=== PATIENT | female | born 1970 | race Two or more races ===

== ENCOUNTER 2020-02-21 06:16 | Outpatient (REF) | payer OTHER, SELFPAY ==
[2020-02-21 06:54] LABS: MANUAL DIFF FLAG NO
[2020-02-21 07:11] LABS: Estimated Average Glucose 111 mg/dL; Hemoglobin A1c % 5.5 %
[2020-02-21 07:13] LABS: Basophils Absolute Auto 0.1 X10*3/uL (0.0-0.2); Basophils Percent Auto 0.4 % (0-2); Eosinophils Absolute Auto 0.3 X10*3/uL (0.0-0.4); Eosinophils Percent Auto 2.1 % (0-4); Hematocrit 40.7 % (37-47); Hemoglobin 13.2 g/dl (12.0-16.0); Imm Gran Abs Auto 0.05 X10*3/uL (0.00-0.03); Imm Gran Pct Auto 0.4 % (0.0-0.4); Lymphocytes Percent Auto 22.2 % (20-40); Mean Corpuscular HGB Conc 32.4 g/dl (31.0-35.0); Mean Corpuscular Hemoglobin 26.1 pg (27.0-33.0); Mean Corpuscular Volume 80.4 fL (80-98); Mean Platelet Volume 12.2 fL (9.4-12.3); Monocytes Absolute Auto 0.7 X10*3/uL (0.1-1.2); Monocytes Percent Auto 5.1 % (2-11); Neutrophils Absolute Auto 9.5 X10*3/uL (2.0-8.3); Neutrophils Percent Auto 69.8 % (45-73); Platelet Count 291 X10*3/uL (160-400); Red Blood Count 5.06 X10*6/uL (4.20-5.50); Red Cell Distribution Width 15.6 % (11.0-16.0); White Blood Count 13.5 X10*3/uL (4.8-10.8)
[2020-02-21 07:26] LABS: Alanine Aminotransferase 13 U/L (0-31); Alkaline Phosphatase 115 U/L (39-117); Anion Gap 11 (12-20); Aspartate Amino Transferase 13 U/L (5-31); Bilirubin Total 0.4 mg/dL (0.0-1.0); Blood Urea Nitrogen 12 mg/dL (9-16); Calcium 8.4 mg/dL (8.4-10.2); Carbon Dioxide 27 mmol/L (22-29); Chloride 105 mmol/L (96-108); Cholesterol 151 mg/dL; Estimated Glomerular Filt Rate > 60; Glucose Random 100 mg/dL (60-115); HDL Cholesterol 38 mg/dL; LDL Cholesterol Calculated 91 mg/dl; Potassium 4.2 mmol/l (3.3-5.1); Sodium 139 mmol/L (135-145); Total Protein 6.9 g/dL (6.5-8.0); Triglycerides 110 mg/dL
== END 2020-02-21 06:17 | disposition home or self-care (01) ==
LOC: HO.LAB 06:16
PROVIDERS: PCP Internal Medicine; Visit Provider Internal Medicine
DX: E78.00 Pure hypercholesterolemia, unspecified (principal); R73.01 Impaired fasting glucose
CPT/HCPCS: 36415; 80053; 80061; 83036; 84443; 85025

== ENCOUNTER 2020-08-20 07:31 | Outpatient (REF) | payer OTHER, SELFPAY ==
[2020-08-20 08:56] LABS: Alanine Aminotransferase 21 U/L (0-31); Albumin Level 3.9 g/dL (3.5-5.0); Alkaline Phosphatase 113 U/L (39-117); Anion Gap 12 (12-20); Aspartate Amino Transferase 17 U/L (5-31); Bilirubin Total 0.4 mg/dL (0.0-1.0); Blood Urea Nitrogen 18 mg/dL (9-16); Calcium 8.6 mg/dL (8.4-10.2); Carbon Dioxide 24 mmol/L (22-29); Chloride 107 mmol/L (96-108); Cholesterol 187 mg/dL; Estimated Glomerular Filt Rate > 60; Glucose Random 105 mg/dL (60-115); HDL Cholesterol 40 mg/dL; LDL Cholesterol Calculated 123 mg/dl; Potassium 4.4 mmol/L (3.3-5.1); Sodium 139 mmol/L (135-145); Total Protein 6.9 g/dL (6.5-8.0); Triglycerides 124 mg/dL
== END 2020-08-20 07:32 | disposition home or self-care (01) ==
LOC: HO.LAB 07:31
PROVIDERS: PCP Internal Medicine; Visit Provider Internal Medicine
DX: E78.00 Pure hypercholesterolemia, unspecified (principal); I10 Essential (primary) hypertension
CPT/HCPCS: 36415; 80053; 80061

== ENCOUNTER 2021-03-06 12:09 | Outpatient (REF) | payer OTHER, SELFPAY ==
--- NOTE | ~2021-03-06 | MM_ITS ---
EXAMINATION: MM SCREENING DIGITAL BREAST TOMOSYNTHESIS, BILATERAL CLINICAL INFORMATION: Screening. Asymptomatic. The lifetime risk of breast cancer based on the Tyrer-Cuzick Model is 7%. COMPARISON: Mammography: 10/14/2018, 03/04/2017 TECHNIQUE: Digital breast tomosynthesis is performed in both the craniocaudal and mediolateral oblique views along with computer-aided detection (CAD). Synthesized 2D images are generated from the tomosynthesis. Additional right MLO view is provided. FINDINGS: There are scattered areas of fibroglandular density (ACR BI-RADS breast composition Category b). There are no significant masses, abnormal calcifications, or other abnormalities. MM/MM tomosynthesis screening BI IMPRESSION: No mammographic evidence of malignancy. ASSESSMENT: BI-RADS 1: Negative RECOMMENDATION: Routine annual mammography screening. This patient's information was entered into a reminder system with a target due date for their next mammogram.
== END 2021-03-06 12:10 | disposition home or self-care (01) ==
LOC: HO.MAMMO 12:09
PROVIDERS: Visit Provider Internal Medicine
DX: Z12.31 Encounter for screening mammogram for malignant neoplasm of breast (principal)
CPT/HCPCS: 77063; 77067

== ENCOUNTER 2021-09-04 05:57 | Outpatient (REF) | payer OTHER, SELFPAY ==
[2021-09-04 06:09] LABS: MANUAL DIFF FLAG NO
[2021-09-04 07:39] LABS: Basophils Absolute Auto 0.1 X10*3/uL (0.0-0.2); Basophils Percent Auto 0.5 % (0-2); Eosinophils Absolute Auto 0.2 X10*3/uL (0.0-0.4); Eosinophils Percent Auto 1.4 % (0-4); Hematocrit 41.1 % (37.0-47.0); Hemoglobin 13.3 g/dl (12.0-16.0); Imm Gran Abs Auto 0.08 X10*3/uL (0.00-0.03); Imm Gran Pct Auto 0.6 % (0.0-0.4); Lymphocytes Absolute Auto 2.9 X10*3/uL (1.2-4.9); Lymphocytes Percent Auto 22.1 % (20-40); Mean Corpuscular HGB Conc 32.4 g/dl (31.0-35.0); Mean Corpuscular Hemoglobin 26.2 pg (27.0-33.0); Mean Corpuscular Volume 80.9 fL (80.0-98.0); Mean Platelet Volume 12.4 fL (9.4-12.3); Monocytes Absolute Auto 0.7 X10*3/uL (0.1-1.2); Neutrophils Absolute Auto 9.4 x10*3/uL (2.0-8.3); Neutrophils Percent Auto 70.4 % (45-73); Platelet Count 321 X10*3/uL (160-400); Red Blood Count 5.08 X10*6/uL (4.20-5.50); Red Cell Distribution Width 15.7 % (11.0-16.0); White Blood Count 13.3 X10*3/uL (4.8-10.8)
[2021-09-04 08:08] LABS: Alanine Aminotransferase 17 U/L (0-31); Albumin Level 4.1 g/dL (3.5-5.0); Alkaline Phosphatase 125 U/L (39-117); Anion Gap 13 (12-20); Aspartate Amino Transferase 14 U/L (5-31); Bilirubin Total 0.3 mg/dL (0.0-1.0); Blood Urea Nitrogen 15 mg/dL (9-16); Carbon Dioxide 23 mmol/L (22-29); Chloride 107 mmol/L (96-108); Cholesterol 176 mg/dL; Estimated Glomerular Filt Rate > 60; Glucose Random 111 mg/dL (60-115); HDL Cholesterol 40 mg/dL; LDL Cholesterol Calculated 117 mg/dl; Potassium 4.5 mmol/L (3.3-5.1); Sodium 138 mmol/L (135-145); Total Protein 7.4 g/dL (6.5-8.0); Triglycerides 98 mg/dL
== END 2021-09-04 05:58 | disposition home or self-care (01) ==
LOC: HO.LAB 05:57
PROVIDERS: PCP Internal Medicine; Visit Provider Internal Medicine
DX: Z00.00 Encounter for general adult medical examination without abnormal findings (principal); M23.92 Unspecified internal derangement of left knee; E78.00 Pure hypercholesterolemia, unspecified; I10 Essential (primary) hypertension
CPT/HCPCS: 36415; 80053; 80061; 85025

== ENCOUNTER 2021-12-16 08:28 | Outpatient (REF) | payer OTHER, SELFPAY ==
--- NOTE | ~2021-12-16 | XR_ITS ---
EXAMINATION: XR SHOULDER, LEFT CLINICAL INFORMATION: Pain. COMPARISON: None TECHNIQUE: Three views of the left shoulder. FINDINGS: The bones and soft tissues are normal. No fracture. Glenohumeral and acromioclavicular alignment is anatomic with normal joint space. No abnormal soft tissue calcifications. XR/XR shoulder LT min 2V IMPRESSION: Normal left shoulder.
== END 2021-12-16 08:29 | disposition home or self-care (01) ==
LOC: HO.HOSX 08:28
PROVIDERS: Visit Provider Orthopaedic Surgery
DX: M25.512 Pain in left shoulder (principal)
CPT/HCPCS: 73030

== ENCOUNTER 2022-01-30 13:02 | Outpatient (REF) | payer OTHER, SELFPAY ==
--- NOTE | 2022-01-30 08:30 | EMG_ITS ---
Bilateral median and ulnar motor and sensory studies were performed. Bilateral radial sensory studies were performed, and paraspinal muscles were tested with a needle. IMPRESSION: Mild bilateral ulnar neuropathy across cubital tunnel. There was no evidence of median neuropathy. MD RAHAT Torres/YANCY / [id number]
== END 2022-01-30 13:03 | disposition home or self-care (01) ==
LOC: HO.NEURO 13:02
PROVIDERS: PCP Internal Medicine; Visit Provider Internal Medicine
DX: R20.2 Paresthesia of skin (principal)
CPT/HCPCS: 95886; 95911

== ENCOUNTER 2022-03-04 09:57 | Outpatient (REF) | payer OTHER, SELFPAY ==
[2022-03-04 10:16] LABS: MANUAL DIFF FLAG NO
[2022-03-04 10:43] LABS: Basophils Absolute Auto 0.1 X10*3/uL (0.0-0.2); Basophils Percent Auto 0.5 % (0-2); Eosinophils Absolute Auto 0.2 X10*3/uL (0.0-0.4); Eosinophils Percent Auto 1.7 % (0-4); Hemoglobin 12.7 g/dl (12.0-16.0); Imm Gran Abs Auto 0.03 X10*3/uL (0.00-0.03); Imm Gran Pct Auto 0.2 % (0.0-0.4); Lymphocytes Absolute Auto 3.6 X10*3/uL (1.2-4.9); Lymphocytes Percent Auto 26.9 % (20-40); Mean Corpuscular HGB Conc 32.6 g/dl (31.0-35.0); Mean Corpuscular Hemoglobin 25.7 pg (27.0-33.0); Mean Corpuscular Volume 78.9 fL (80.0-98.0); Mean Platelet Volume 11.4 fL (9.4-12.3); Monocytes Absolute Auto 0.7 X10*3/uL (0.1-1.2); Monocytes Percent Auto 5.4 % (2-11); Neutrophils Absolute Auto 8.7 x10*3/uL (2.0-8.3); Neutrophils Percent Auto 65.3 % (45-73); Platelet Count 306 X10*3/uL (160-400); Red Blood Count 4.94 X10*6/uL (4.20-5.50); Red Cell Distribution Width 15.8 % (11.0-16.0); White Blood Count 13.3 X10*3/uL (4.8-10.8)
[2022-03-04 11:13] LABS: Alanine Aminotransferase 27 U/L (0-31); Albumin Level 3.8 g/dL (3.5-5.0); Alkaline Phosphatase 126 U/L (39-117); Anion Gap 11 (12-20); Aspartate Amino Transferase 13 U/L (5-31); Bilirubin Total 0.5 mg/dL (0.0-1.0); Blood Urea Nitrogen 14 mg/dL (9-16); Calcium 8.7 mg/dL (8.4-10.2); Carbon Dioxide 26 mmol/L (22-29); Chloride 105 mmol/L (96-108); Cholesterol 180 mg/dL; Estimated Glomerular Filt Rate > 60; Glucose Random 105 mg/dL (60-115); HDL Cholesterol 33 mg/dL; LDL Cholesterol Calculated 113 mg/dl; Potassium 4.2 mmol/L (3.3-5.1); Sodium 138 mmol/L (135-145); Total Protein 6.7 g/dL (6.5-8.0); Triglycerides 171 mg/dL
== END 2022-03-04 09:58 | disposition home or self-care (01) ==
LOC: HO.LAB 09:57
PROVIDERS: PCP Internal Medicine; Visit Provider Internal Medicine
DX: E78.00 Pure hypercholesterolemia, unspecified (principal); B02.29 Other postherpetic nervous system involvement; F32.9 Major depressive disorder, single episode, unspecified; I10 Essential (primary) hypertension
CPT/HCPCS: 36415; 80053; 80061; 85025

== ENCOUNTER 2022-12-05 07:20 | Outpatient (REF) | payer OTHER, SELFPAY ==
--- NOTE | ~2022-12-05 | MR_ITS ---
EXAMINATION: MR BRAIN WITHOUT CONTRAST CLINICAL INFORMATION: Migraine, tremor COMPARISON: None TECHNIQUE: Multiplanar multisequence MR imaging of the brain was obtained without intravenous contrast. FINDINGS: There is no acute infarct on diffusion-weighted imaging. There is no intracranial hemorrhage on iron-sensitive imaging. No extra-axial collection or mass effect/herniation. Mild to moderate burden of scattered periventricular and deep white matter T2 FLAIR hyperintensities, greater than expected for age. No hydrocephalus. The ventricles are normal in morphology and size. The major flow voids at the skull base are preserved. There is a 4 mm rounded flow void along the left anterior cerebral artery within the interhemispheric fissure (series 9 image 16), which may represent an aneurysm. Partially empty sella. The cerebellar tonsils are normally positioned. The craniocervical junction is normal. Marrow signal is within normal limits. 7 mm T2 hyperintense nodule in the left parotid gland. No signal abnormality within the paranasal sinuses or within the mastoid air cells. MR/MR head/brain wo con IMPRESSION: 1. Mild to moderate burden of supratentorial white matter T2 FLAIR hyperintensities, greater than expected for age, which are nonspecific but can be seen in the setting of migraine headache and/or chronic microvascular ischemia. 2. Possible 4 mm aneurysm involving the left anterior cerebral artery. Recommend further assessment with CTA of the head. 3. Partially empty sella. As an isolated finding, this is nonspecific but can be seen in the setting of idiopathic intracranial hypertension. No ancillary imaging findings of elevated intracranial pressure. 4. 7 mm T2 hyperintense nodule within the left parotid gland which may represent an intraparotid lymph node, although a small benign mixed tumor is not excluded.
[2022-12-05 09:30] LABS: Cholesterol 161 mg/dL; HDL Cholesterol 35 mg/dL; LDL Cholesterol Calculated 99 mg/dl; Triglycerides 138 mg/dL
== END 2022-12-05 07:21 | disposition home or self-care (01) ==
LOC: HO.MRI 07:20
PROVIDERS: Absent Provider Internal Medicine; PCP Internal Medicine; Visit Provider Psychiatry & Neurology Neurology
DX: G43.919 Migraine, unspecified, intractable, without status migrainosus (principal); E78.2 Mixed hyperlipidemia; G25.2 Other specified forms of tremor; I10 Essential (primary) hypertension
CPT/HCPCS: 36415; 70551; 80061

== ENCOUNTER 2022-12-15 12:19 | Outpatient (REF) | payer OTHER, SELFPAY ==
[2022-12-15 14:24] LABS: Blood Urea Nitrogen 13 mg/dL (9-16); Estimated Glomerular Filt Rate > 60
== END 2022-12-15 12:20 | disposition home or self-care (01) ==
LOC: HO.LAB 12:19
PROVIDERS: PCP Internal Medicine; Visit Provider Psychiatry & Neurology Neurology
DX: I67.1 Cerebral aneurysm, nonruptured (principal)
CPT/HCPCS: 36415; 82565; 84520

== ENCOUNTER 2022-12-17 09:41 | Day surgery (SDC) | payer OTHER, SELFPAY ==
[2022-12-17] VITALS (7 sets, daily range): BP systolic 106–144; BP diastolic 65–76; PULSE 75–81; RESP 14–20; TEMP 36.1–37; O2SAT 97–99; BMI 40.4
--- NOTE | ~2022-12-17 | FL_ITS ---
PROCEDURE: XR LUMBAR PUNCTURE CLINICAL INFORMATION: Idiopathic intracranial hypertension. Intractable migraine. COMPARISON: MRI of 12/05/2022. TECHNIQUE: Fluoroscopic-guided lumbar puncture. FINDINGS: Informed consent was obtained from the patient prior to the procedure. During this process, the procedure and potential alternatives were explained, along with the intended outcome and benefits. The risks of the procedure, as well as the risk of not doing the procedure, were discussed. The patient was given the opportunity to ask questions regarding the procedure and appeared competent to make medical decisions. A signed consent form which documents this discussion was placed in the medical record. Using sterile technique and fluoroscopic guidance from a posterior approach a 22-gauge spinal needle was directed into the thecal sac at the L4-L5 level. Opening pressure was 17 cm of water. A total of 10 mL of clear CSF were removed without difficulty. Patient tolerated procedure without difficulty. FLUOROSCOPY TIME: 0.5 minutes DOSE AREA PRODUCT: 3.956 Gy-cm2 (orona-centimeter squared) FL/FL guided lumbar puncture LP IMPRESSION: Successful lumbar puncture.
[2022-12-17 10:33] LABS: Prothrombin Time 12.3 SEC (11.1-13.3)
[2022-12-17 11:44] LABS: Partial Thromboplastin Time 35.9 SEC (26.0-36.4)
[2022-12-17 11:47] LABS: MANUAL DIFF FLAG NO
[2022-12-17 11:53] LABS: Basophils Absolute Auto 0.1 X10*3/uL (0.0-0.2); Basophils Percent Auto 0.3 % (0-2); Eosinophils Absolute Auto 0.2 X10*3/uL (0.0-0.4); Eosinophils Percent Auto 1.1 % (0-4); Hematocrit 39.7 % (37.0-47.0); Hemoglobin 12.7 g/dl (12.0-16.0); Imm Gran Abs Auto 0.22 X10*3/uL (0.00-0.03); Imm Gran Pct Auto 1.2 % (0.0-0.4); Lymphocytes Absolute Auto 4.4 X10*3/uL (1.2-4.9); Mean Corpuscular Hemoglobin 25.2 pg (27.0-33.0); Mean Corpuscular Volume 78.8 fL (80.0-98.0); Mean Platelet Volume 12.3 fL (9.4-12.3); Monocytes Absolute Auto 0.9 X10*3/uL (0.1-1.2); Monocytes Percent Auto 4.9 % (2-11); Neutrophils Absolute Auto 11.9 x10*3/uL (2.0-8.3); Neutrophils Percent Auto 67.5 % (45-73); Platelet Count 350 X10*3/uL (160-400); Red Blood Count 5.04 X10*6/uL (4.20-5.50); Red Cell Distribution Width 16.7 % (11.0-16.0); White Blood Count 17.6 X10*3/uL (4.8-10.8)
[2022-12-17 13:43] LABS: CSF Appearance Clear, Colorless; CSF Tube # 2
[2022-12-17 14:25] LABS: Appearance CSF CLEAR; CSF Monos 25 %; CSF Tube # 4; Color CSF COLORLESS; Lymphocytes CSF 75 %; Red Blood Cell CSF 0 MM*3; White Blood Cell CSF 2 MM*3
[2022-12-17 14:33] LABS: Glucose CSF 72 mg/dL
== END 2022-12-17 16:53 | disposition home or self-care (01) ==
PROVIDERS: Internal Medicine; Psychiatry & Neurology Neurology; PCP Internal Medicine; Visit Provider Radiology Diagnostic Radiology
PROC: 009U3ZZ Drainage of Spinal Canal, Percutaneous Approach (ICD-10-PCS; CPT 62270; principal; 2022-12-17 11:00)
DX: G93.2 Benign intracranial hypertension (principal); G43.919 Migraine, unspecified, intractable, without status migrainosus; G43.709 Chronic migraine without aura, not intractable, without status migrainosus; G43.109 Migraine with aura, not intractable, without status migrainosus; M54.2 Cervicalgia; M79.603 Pain in arm, unspecified; I10 Essential (primary) hypertension; F41.8 Other specified anxiety disorders; R25.1 Tremor, unspecified; E66.9 Obesity, unspecified; Z68.38 Body mass index [BMI] 38.0-38.9, adult; Z79.899 Other long term (current) drug therapy; F17.210 Nicotine dependence, cigarettes, uncomplicated
CPT/HCPCS: 36415; 62328; 82945; 84157; 85025; 85610; 85730; 87015; 87070; 87205; 89051

== ENCOUNTER → 2022-12-17 11:30 | Outpatient (BNV) | payer OTHER, SELFPAY | PROVIDERS: PCP Internal Medicine; Visit Provider Radiology Diagnostic Radiology | DX: G93.2 Benign intracranial hypertension (principal); G43.019 Migraine without aura, intractable, without status migrainosus | CPT/HCPCS: 62328 ==

== ENCOUNTER 2022-12-22 14:43 | Outpatient (REF) | payer OTHER, SELFPAY ==
--- NOTE | ~2022-12-22 | US_ITS ---
EXAMINATION: US SOFT TISSUE NECK CLINICAL INFORMATION: Left parotid neoplasm. COMPARISON: None available. TECHNIQUE: Ultrasound of left parotid gland with high- frequency orona-scale imaging and color Doppler. FINDINGS: The left parotid gland is homogeneous in echotexture. There are several lymph nodes seen. Some of the lymph nodes measured are intraparotid with the largest lymph node measuring 0.9 x 0.3 x 0.9 cm along the inferior aspect. There is central echogenic hilum with peripheral hypoechogenicity and all the lymph nodes appear benign. A small hypoechoic lesion with central echogenic linear area probably atypical lymph node measures 0.5 x 0.4 x 0.5 cm. This most likely represents atypical lymph node. No solid or atypical-appearing lesion seen. The parotid contours are maintained normal. US/US soft tiss head and/or neck IMPRESSION: Benign-appearing lymph nodes in the left parotid gland. No solid or vascular lesion seen. The fourth lesion is a slightly atypical lymph node. Further correlation with CT with contrast can be performed in 3 months if clinically deemed necessary.
== END 2022-12-22 14:44 | disposition home or self-care (01) ==
LOC: HO.US 14:43
PROVIDERS: PCP Internal Medicine; Visit Provider Internal Medicine
DX: D11.0 Benign neoplasm of parotid gland (principal)
CPT/HCPCS: 76536

== ENCOUNTER 2023-01-05 08:55 | Outpatient (AMB) | payer OTHER, SELFPAY ==
[2023-01-05 09:02] VITALS: BP 149/89; PULSE 79; BMI 40.6
--- NOTE | 2023-01-05 09:02 | MHC.OFFVIS ---
Intake Vital Signs 01/05/23 09:02 Height 5 ft 3 in Weight 229 lb BMI 40.6 BP 149/89 H Blood Pressure Location Rt brachial Position Sitting Pulse 79 Intake Visit Reasons: Left parotid lymph node on u/s Intake Note: Patient referred for Lt paratoid node that was found on US dated 12-22-22. Patient denies pain but does get earaches. But may be related to other issues. Recently had fussion in March. 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 Accompanied by: daughter Juju Moreau Allergies acetaminophen [From Percocet] Allergy (Mild, Unverified 01/05/23 09:06) RASH lisinopril [Lisinopril] Allergy (Mild, Unverified 01/05/23 09:06) RASH oxycodone [From Percocet] Allergy (Mild, Unverified 01/05/23 09:06) RASH mayonnaise [MAYONNAISE] Allergy (Unknown, Unverified 01/05/23 09:06) HIVES topiramate [From TOPAMAX] Allergy (Unknown, Unverified 01/05/23 09:06) KIDNEY STONES Medication List - Last Reconciled 01/05/23 by Krzysztof Lira MD amlodipine 10 mg PO DAILY atorvastatin 80 mg PO BEDTIME bupropion HCl 150 mg PO QAM duloxetine 30 mg PO QAM lorazepam 0.5 mg PO TID PRN metoprolol succinate ER 100 mg PO DAILY olmesartan-hydrochlorothiazide 40-25 mg 1 tab PO DAILY trazodone 50 mg PO BEDTIME PRN trazodone 50 mg PO BEDTIME triamcinolone acetonide 0.5% appl topical BID HPI HPI Comments History of Present Illness Details Patient presents with her daughter for follow-up status post incidental finding of a Nash parotid mildly enlarged lymph node. Patient has a multitude of SHIFT PRODUCTION SUPERVISOR issues and question of a art aneurysm. The patient does not complain of any lymph node swelling or mass. She denies any fever, chills, night sweats, weight loss. She has no lymph node swelling elsewhere. Chart was reviewed patient evaluated. Patient is status post recent neck fusion. She is also being evaluated for rotator cuff injury as well. [facility] Medical History GERD (gastroesophageal reflux disease) Torn rotator cuff Attention and concentration deficit Depression Anxiety Hyperlipidemia Hx of migraines Hypertension Surgical History History of neck surgery Hx of cholecystectomy H/O: hysterectomy Social History (Updated 01/05/23 @ 09:08 by CLIVE Upton) Alcohol intake: never Patient Tobacco Use Status: Current everyday Tobacco user Cigarettes Per Day: 10 Current occupational status: unemployed Physical Exam Vital Signs: Last Vital Signs Pulse 79 01/05/23 09:02 BP 149/89 H 01/05/23 09:02 BMI result Body Mass Index 40.6 HEENT Other: No obvious cervical, periclavicular, or axillary adenopathy. In particular, no Yaneli-parotid lymph node enlargement demonstrated. GI Other: Abdomen soft, corpulent, benign. Groin exam bilaterally no obvious adenopathy. Assessment & Plan Assessment & Plan (1) Lymph node enlargement: Comment: The present time, we will treat the patient conservatively. Current plan is to arrange for follow-up sonogram of the periparotid area and 3 months time and direct further therapy based on these results. During the interim, should patient have any issues or issues or complaints regarding this area, she has been instructed to contact the office or will otherwise follow-up as directed. Code(s): R59.9 - Enlarged lymph nodes, unspecified Orders: Orders US biopsy subcutaneous skin 6 Months R59.9 - Enlarged lymph nodes, unspecified Coding Level of Care Code New Pt Level 4 (12302) Diagnoses Lymph node enlargement R59.9
== END 2023-01-05 09:17 | disposition home or self-care (01) ==
PROVIDERS: PCP Internal Medicine; Referring Provider Internal Medicine; Visit Provider Surgery
DX: R59.9 Enlarged lymph nodes, unspecified (principal)
CPT/HCPCS: 99204

== ENCOUNTER → 2023-01-05 08:55 | Outpatient (BNVA) | payer OTHER, SELFPAY | PROVIDERS: PCP Internal Medicine; Referring Provider Internal Medicine; Visit Provider Surgery ==

== ENCOUNTER 2023-01-12 15:27 | Outpatient (REF) | payer OTHER, SELFPAY ==
--- NOTE | ~2023-01-12 | CT_ITS ---
EXAMINATION: CT ANGIOGRAM BRAIN, HEAD CLINICAL INFORMATION: Cerebral aneurysm. COMPARISON: MRI brain on 12/05/2022. TECHNIQUE: Test bolus sequences followed by intravenous administration 75 mL of Omnipaque 350 intravenous contrast. Helical imaging was performed in the axial plane from the skull base to the vertex. Delayed postcontrast imaging of the head was also performed. The data was processed at the production control technologist workstation for generation of MIP sequences. Three-dimensional volume rendered reformatted images were also generated at an offline 3-D workstation. The degree of stenosis determined by NASCET criteria. This CT examination was performed using dose optimization techniques as appropriate, variously including the following: *Automated exposure control *Adjustment of mA and/or kV according to patient size (this includes techniques or standardized protocols for targeted exams where dose is matched to indication/reason for exam; i.e. extremities or head) *Use of iterative reconstruction technique DLP: 2321.7 mGy-cm FINDINGS: CT head: No acute intracranial hemorrhage or infarct. The orona-white matter differentiation is preserved. No abnormal enhancement. No mass effect or midline shift. No acute extra-axial fluid collections. The osseous structures are unremarkable. No orbital pathology. Partially empty sella. The paranasal sinuses and mastoid air cells are clear. CTA HEAD: Anterior circulation: There is a 2 mm saccular aneurysm of the left clinoid internal carotid artery directed inferiorly and laterally (series 9, image 96 of 292). Additionally, there is a 6 x 4 mm saccular aneurysm of the left A3 segment directed superiorly. The petrous, cavernous and supraclinoid segments of the bilateral internal carotid arteries as well as the clinoid segment of the right internal carotid artery are patent bilaterally. The remaining major branches of the anterior and middle cerebral arteries are patent. No large vessel occlusion or dissection. Posterior circulation: The intracranial vertebral arteries are normal in caliber and patent. The basilar artery is patent and normal in course. The posterior cerebral and superior cerebellar arteries arise normally from the basilar summit. No aneurysm. CT/CT angio head IMPRESSION: 6 mm left A3 saccular aneurysm directed superiorly. 2 mm left clinoid ICA saccular aneurysm directed inferiorly and laterally. No acute intracranial hemorrhage or infarct.
[2023-01-12] MEDS: iohexoL 350 MG/ML 100 ML INFUS..BTL IV (16:45)
== END 2023-01-12 15:28 | disposition home or self-care (01) ==
LOC: HO.CT 15:27
PROVIDERS: PCP Internal Medicine; Visit Provider Psychiatry & Neurology Neurology
DX: I67.1 Cerebral aneurysm, nonruptured (principal)
CPT/HCPCS: 70496; Q9967

== ENCOUNTER 2023-03-23 12:50 | Outpatient (REF) | payer OTHER, SELFPAY ==
--- NOTE | ~2023-03-23 | US_ITS ---
EXAMINATION: US SOFT TISSUE HEAD/NECK CLINICAL INFORMATION: Enlarged lymph nodes, unspecified. Followup of ultrasound of a large left periparotid lymph node. COMPARISON: Ultrasound soft tissue neck 12/22/2022. TECHNIQUE: Linear transducer orona-scale and color Doppler examination of the left parotid gland. FINDINGS: Within the superior segment of the left parotid gland is a cystic focus measuring 1.0 x 0.9 x 0.7 cm. Multiple lymph nodes are noted along the inferior margin of the parotid gland are redemonstrated the largest measuring up to 0.3 cm in short axis. A new lymph node is also noted measuring 0.5 cm in short axis. US/US soft tiss head and/or neck IMPRESSION: 1. Cystic focus noted in the superior segment of the left parotid gland measuring up to 1.0 cm. 2. Multiple lymph nodes are again noted along the inferior margin of the parotid gland, the largest redemonstrated measuring up to 0.3 cm in short axis. A new lymph node is also noted measuring 0.5 cm in short axis.
== END 2023-03-23 12:51 | disposition home or self-care (01) ==
LOC: HO.US 12:50
PROVIDERS: PCP Internal Medicine; Visit Provider Surgery
DX: R59.9 Enlarged lymph nodes, unspecified (principal)
CPT/HCPCS: 76536

== ENCOUNTER 2023-03-26 13:42 | Outpatient (REF) | payer OTHER, SELFPAY ==
--- NOTE | ~2023-03-26 | MM_ITS ---
EXAMINATION: MM SCREENING DIGITAL BREAST TOMOSYNTHESIS, BILATERAL CLINICAL INFORMATION: Screening. Asymptomatic. COMPARISON: Mammography: This study is compared with prior exams dating back to 2017. TECHNIQUE: Digital breast tomosynthesis is performed in both the craniocaudal and mediolateral oblique views along with computer-aided detection (CAD). Synthesized 2D images are generated from the tomosynthesis. FINDINGS: The breasts are almost entirely fatty (ACR BI-RADS breast composition Category a). There are no significant masses, abnormal calcifications, or other abnormalities. MM/MM tomosynthesis screening BI IMPRESSION: No mammographic evidence of malignancy. ASSESSMENT: BI-RADS BI-RADS 1 - Negative RECOMMENDATION: Routine annual mammography screening. 1 year F/U This examination should not preclude the clinical evaluation of a suspicious palpable abnormality. This patient's information was entered into a reminder system with a target due date for their next mammogram.
== END 2023-03-26 13:43 | disposition home or self-care (01) ==
LOC: HO.MAMMO 13:42
PROVIDERS: PCP Internal Medicine; Visit Provider Internal Medicine
DX: Z12.31 Encounter for screening mammogram for malignant neoplasm of breast (principal)
CPT/HCPCS: 77063; 77067

== ENCOUNTER → 2023-03-26 14:00 | Outpatient (BNV) | payer OTHER, SELFPAY | PROVIDERS: PCP Internal Medicine; Visit Provider Radiology Diagnostic Radiology | DX: Z12.31 Encounter for screening mammogram for malignant neoplasm of breast (principal) | CPT/HCPCS: 77063; 77067 ==

== ENCOUNTER 2023-03-31 09:06 | Outpatient (AMB) | payer OTHER, SELFPAY ==
--- NOTE | 2023-03-31 09:13 | A.OFFVIS_ITS ---
Intake Vital Signs 03/31/23 09:18 Height 5 ft 3 in Weight 228 lb BMI 40.4 Intake Visit Reasons: Parotid neoplasm, US results Intake Note: This patient presents for a follow-up for Ultrasound results. Patient c/o; reports no changes or concerns at this time. 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 Patient has no new issues or complaints. She apparently had inflamed nodes bilaterally which have since resolved. Ultrasound of neck was reviewed. [facility] Medical History GERD (gastroesophageal reflux disease) Torn rotator cuff Attention and concentration deficit Depression Anxiety Hyperlipidemia Hx of migraines Hypertension Surgical History History of neck surgery Hx of cholecystectomy H/O: hysterectomy Social History Alcohol intake: never Patient Tobacco Use Status: Current everyday Tobacco user Cigarettes Per Day: 10 Current occupational status: unemployed Physical Exam Vital Signs: BMI result Body Mass Index 40.4 HEENT Other: No obvious cervical, periclavicular, or axillary or groin adenopathy appreciated. No obvious parotid mass. GI Other: Abdomen soft, corpulent, benign Assessment & Plan Assessment & Plan (1) Lymph node enlargement: Comment: The present time, we will treat the patient conservatively. Current plan is to arrange for follow-up sonogram of the periparotid area and 3 months time and direct further therapy based on these results. During the interim, should patient have any issues or issues or complaints regarding this area, she has been instructed to contact the office or will otherwise follow-up as directed. Code(s): R59.9 - Enlarged lymph nodes, unspecified Plan Current plan is to have patient evaluated by ENT and direct further interventions based on their recommendation. Coding Level of Care Code Est Pt Level 4 (28160) Diagnoses Lymph node enlargement R59.9
[2023-03-31 09:18] VITALS: BMI 40.4
== END 2023-03-31 09:23 | disposition home or self-care (01) ==
PROVIDERS: PCP Internal Medicine; Visit Provider Surgery
DX: R59.9 Enlarged lymph nodes, unspecified (principal)
CPT/HCPCS: 99214

== ENCOUNTER → 2023-03-31 09:06 | Outpatient (BNVA) | payer OTHER, SELFPAY | PROVIDERS: PCP Internal Medicine; Visit Provider Surgery ==

== ENCOUNTER 2023-07-31 10:30 | Outpatient (REF) | payer OTHER, SELFPAY ==
[2023-07-31 13:04] LABS: Alanine Aminotransferase 12 U/L (0-31); Alkaline Phosphatase 119 U/L (39-117); Anion Gap 12 (12-20); Aspartate Amino Transferase 13 U/L (5-31); Bilirubin Total 0.3 mg/dL (0.0-1.0); Blood Urea Nitrogen 13 mg/dL (9-16); Carbon Dioxide 26 mmol/L (22-29); Chloride 109 mmol/L (96-108); Cholesterol 141 mg/dL (<200); Estimated Glomerular Filt Rate > 60; Glucose Random 93 mg/dL (60-115); HDL Cholesterol 38 mg/dL (>40); LDL Cholesterol Calculated 78 mg/dL (<100); Potassium 4.1 mmol/L (3.3-5.1); Sodium 143 mmol/L (135-145); Total Protein 7.7 g/dL (6.5-8.0); Triglycerides 128 mg/dL (<150)
[2023-07-31 13:10] LABS: Thyroid Stimulating Hormone 1.11 uIU/mL (0.32-4.0)
== END 2023-07-31 10:31 | disposition home or self-care (01) ==
LOC: HO.LAB 10:30
PROVIDERS: PCP Internal Medicine; Visit Provider Internal Medicine
DX: E78.00 Pure hypercholesterolemia, unspecified (principal); G44.209 Tension-type headache, unspecified, not intractable; G47.33 Obstructive sleep apnea (adult) (pediatric); I10 Essential (primary) hypertension
CPT/HCPCS: 36415; 80053; 80061; 84443

== ENCOUNTER 2024-01-19 06:03 | Outpatient (REF) | payer OTHER, SELFPAY ==
[2024-01-19 06:32] LABS: MANUAL DIFF FLAG NO
[2024-01-19 07:23] LABS: Basophils Absolute Auto 0.1 X10*3/uL (0.0-0.2); Basophils Percent Auto 0.5 % (0-2); Eosinophils Absolute Auto 0.2 X10*3/uL (0.0-0.4); Eosinophils Percent Auto 1.3 % (0-4); Hemoglobin 13.5 g/dl (12.0-16.0); Imm Gran Abs Auto 0.15 X10*3/uL (0.00-0.03); Imm Gran Pct Auto 1.1 % (0.0-0.4); Lymphocytes Absolute Auto 3.9 X10*3/uL (1.2-4.9); Lymphocytes Percent Auto 29.8 % (20-40); Mean Corpuscular HGB Conc 32.9 g/dl (31.0-35.0); Mean Corpuscular Hemoglobin 26.4 pg (27.0-33.0); Mean Corpuscular Volume 80.2 fL (80.0-98.0); Mean Platelet Volume 12.1 fL (9.4-12.3); Monocytes Absolute Auto 0.8 X10*3/uL (0.1-1.2); Monocytes Percent Auto 6.3 % (2-11); Platelet Count 296 X10*3/uL (160-400); Red Blood Count 5.11 X10*6/uL (4.20-5.50); Red Cell Distribution Width 15.6 % (11.0-16.0); White Blood Count 13.1 X10*3/uL (4.8-10.8)
[2024-01-19 07:49] LABS: Alanine Aminotransferase 15 U/L (0-31); Alkaline Phosphatase 111 U/L (39-117); Anion Gap 13 (12-20); Aspartate Amino Transferase 14 U/L (5-31); Bilirubin Total 0.3 mg/dL (0.0-1.0); Blood Urea Nitrogen 13 mg/dL (9-16); Calcium 9.2 mg/dL (8.4-10.2); Carbon Dioxide 23 mmol/L (22-29); Chloride 109 mmol/L (96-108); Cholesterol 159 mg/dL (<200); Estimated Glomerular Filt Rate > 60; Glucose Random 116 mg/dL (60-115); HDL Cholesterol 33 mg/dL (>40); LDL Cholesterol Calculated 98 mg/dL (<100); Sodium 141 mmol/L (135-145); Total Protein 7.3 g/dL (6.5-8.0); Triglycerides 142 mg/dL (<150)
== END 2024-01-19 06:04 | disposition home or self-care (01) ==
LOC: HO.LAB 06:03
PROVIDERS: PCP Internal Medicine; Visit Provider Internal Medicine
DX: I10 Essential (primary) hypertension (principal); M17.12 Unilateral primary osteoarthritis, left knee; Z68.41 Body mass index [BMI] 40.0-44.9, adult
CPT/HCPCS: 36415; 80053; 80061; 85025

== ENCOUNTER 2024-01-29 06:24 | Day surgery (SDC) | payer OTHER, SELFPAY ==
[2024-01-29 07:04] VITALS: BMI 38.1
[2024-01-29 07:06] VITALS: BP 134/84; PULSE 65; RESP 16; TEMP 35.9; O2SAT 99
--- NOTE | 2024-01-29 07:10 | P.CONAN_ITS ---
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 ?She subsequently underwent conventional angiography with?web embolization device placement to the left pericallosal aneurysm with excellent results. ?Patient has done well since the procedure and is currently asymptomatic.? She was also found to have a much smaller right pericallosal aneurysm which is being conservatively managed. PMFSH Active Problems Active Problems: All Active Problems Lymph node enlargement (Acute) Cervical radiculopathy (Acute) Past Medical History Medical History (Updated 01/29/24 @ 06:50 by Yuli Wolfe RN) Sleep apnea Kidney stones Brain aneurysm GERD (gastroesophageal reflux disease) Torn rotator cuff Attention and concentration deficit Depression Anxiety Hyperlipidemia Hx of migraines Hypertension Surgical History Surgical History (Updated 01/28/24 @ 12:56 by Bethany Mccullough RN) History of esophagogastroduodenoscopy (EGD) History of neck surgery Hx of cholecystectomy H/O: hysterectomy Social History Social History Alcohol intake: never Patient Tobacco Use Status: Current everyday Tobacco user Tobacco use type: Cigarette Cigarettes Per Day: 6 Use of substances other than those prescribed or required for medical reasons: No Are you DNR?: No Advance Directives: No Advance Directives Information Provided: Yes Recently lost weight without trying: No Nutrition Risks: No Nutritional Risk Current occupational status: unemployed Meds Allergies Allergy/AdvReac Type Severity Reaction Status Date / Time lisinopril [Lisinopril] Allergy Mild RASH Unverified 03/31/23 09:18 oxycodone [From Percocet] Allergy Mild Abdominal Unverified 01/29/24 07:18 Pain mayonnaise [MAYONNAISE] Allergy Unknown HIVES Unverified 03/31/23 09:18 topiramate [From TOPAMAX] Allergy Unknown KIDNEY Unverified 03/31/23 09:18 STONES Home Medications ?Medication ?Instructions ?Recorded ?Confirmed ?Last Taken ?Type amlodipine 10 mg tablet 10 mg PO DAILY 12/16/21 01/29/24 History bupropion HCl 150 mg 24 hr tablet, 150 mg PO QAM 12/16/21 Unknown History extended release lorazepam 0.5 mg tablet 0.5 mg PO TID PRN Anxiety 12/16/21 12/17/22 History trazodone 50 mg tablet 50 mg PO BEDTIME 12/16/21 Unknown History atorvastatin 80 mg tablet 80 mg PO BEDTIME 12/19/22 Unknown History duloxetine 30 mg capsule,delayed 30 mg PO QAM 12/19/22 Unknown History release metoprolol succinate 100 mg 100 mg PO DAILY 12/19/22 01/29/24 History tablet,extended release 24 hr olmesartan 40 1 tab PO DAILY 12/19/22 Unknown History mg-hydrochlorothiazide 25 mg tablet trazodone 50 mg tablet 50 mg PO BEDTIME PRN insomnia 12/19/22 Unknown History triamcinolone acetonide 0.5 % appl topical BID 12/19/22 Unknown History topical cream Exam Pertinent Lab Results Pertinent Lab Results: Laboratory Tests 01/19/24 06:31 WBC 13.1 H Hgb 13.5 Hct 41.0 Plt Count 296 Sodium 141 Potassium 4.0 Chloride 109 H Carbon Dioxide 23 BUN 13 Creatinine 0.70 Assessment and Plan Assessment Anesthesia Assessment: Chart Reviewed Documented by User: Bethany Ignacio DO 01/29/24 07:18 [facility] Past Medical History Medical History (Updated 01/29/24 @ 06:50 by Yuli Wolfe RN) Sleep apnea Kidney stones Brain aneurysm GERD (gastroesophageal reflux disease) Torn rotator cuff Attention and concentration deficit Depression Anxiety Hyperlipidemia Hx of migraines Hypertension Family History Family history of problems with anesthesia: No Surgical History Surgical History (Updated 01/28/24 @ 12:56 by Bethany Mccullough RN) History of esophagogastroduodenoscopy (EGD) History of neck surgery Hx of cholecystectomy H/O: hysterectomy History of Problems with Anesthesia: No Social History Social History Alcohol intake: never Patient Tobacco Use Status: Current everyday Tobacco user Tobacco use type: Cigarette Cigarettes Per Day: 6 Use of substances other than those prescribed or required for medical reasons: No Are you DNR?: No Advance Directives: No Advance Directives Information Provided: Yes Recently lost weight without trying: No Nutrition Risks: No Nutritional Risk Current occupational status: unemployed Meds Allergies Allergy/AdvReac Type Severity Reaction Status Date / Time lisinopril [Lisinopril] Allergy Mild RASH Unverified 03/31/23 09:18 oxycodone [From Percocet] Allergy Mild Abdominal Unverified 01/29/24 07:18 Pain mayonnaise [MAYONNAISE] Allergy Unknown HIVES Unverified 03/31/23 09:18 topiramate [From TOPAMAX] Allergy Unknown KIDNEY Unverified 03/31/23 09:18 STONES Home Medications ?Medication ?Instructions ?Recorded ?Confirmed ?Last Taken ?Type amlodipine 10 mg tablet 10 mg PO DAILY 12/16/21 01/29/24 History bupropion HCl 150 mg 24 hr tablet, 150 mg PO QAM 12/16/21 Unknown History extended release lorazepam 0.5 mg tablet 0.5 mg PO TID PRN Anxiety 12/16/21 12/17/22 History trazodone 50 mg tablet 50 mg PO BEDTIME 12/16/21 Unknown History atorvastatin 80 mg tablet 80 mg PO BEDTIME 12/19/22 Unknown History duloxetine 30 mg capsule,delayed 30 mg PO QAM 12/19/22 Unknown History release metoprolol succinate 100 mg 100 mg PO DAILY 12/19/22 01/29/24 History tablet,extended release 24 hr olmesartan 40 1 tab PO DAILY 12/19/22 Unknown History mg-hydrochlorothiazide 25 mg tablet trazodone 50 mg tablet 50 mg PO BEDTIME PRN insomnia 12/19/22 Unknown History triamcinolone acetonide 0.5 % appl topical BID 12/19/22 Unknown History topical cream Exam Exam Date and Time: 01/29/24 0710 Height,Weight and Vital Signs: Height 5 ft 3 in Weight 97.522 kg Vital Signs Temperature 96.6 F L 01/29/24 07:06 Pulse Rate 65 01/29/24 07:06 Respiratory Rate 16 01/29/24 07:06 Blood Pressure 134/84 01/29/24 07:06 Pulse Oximetry 99 01/29/24 07:06 Oxygen Delivery Method Room Air 01/29/24 07:06 Temperature 96.6 F L 01/29/24 07:06 Pulse Rate 65 01/29/24 07:06 Respiratory Rate 16 01/29/24 07:06 Blood Pressure 134/84 01/29/24 07:06 Pulse Oximetry 99 01/29/24 07:06 Oxygen Delivery Method Room Air 01/29/24 07:06 Airway Mallampati Class: II TM Dist: >3cm Neck ROM: Full Loose/Missing/Broken Teeth: No (patient denies any loose or broken teeth) Heart: S1S2 Lungs: CTAB Assessment and Plan Assessment Anesthesia Assessment: Anesthesia Plan Discussed and Chart Reviewed Final Anesthetic Review Family History of Problems with Anesthesia: No History of Problems with Anesthesia: No NPO: Yes ASA Class: II Final Preanesthetic Review: No Changes in Pt Med Stat, Meds/Allgs Chart Reviewed, Consent Obtained/Reviewed and Anes Risks/Benef Reviewed Patient Risk: Low Procedure Risk: Low Anesthetic Plan Anesthetic Plan: MAC: and Agree w/ Assess. and Plan Disposition: Standard PACU
[2024-01-29] MEDS: Lactated Ringers 1,000 ML 100 ML IVCONT (07:19)
[2024-01-29 08:25] VITALS: BP 98/59; PULSE 62; RESP 16; TEMP 36.1; O2SAT 95
--- NOTE | 2024-01-29 08:26 | PM.OP ---
Brief Operative Note Date of Service: 01/29/24 Pre-op diagnosis: Screening Post-op diagnosis: other (Diverticulosis) Procedure: Colonoscopy to the cecum and TI Surgeon: Cullen Frias MD Anesthesia: MAC Was an Electrical Power Engineer used for this Procedure?: No Estimated blood loss (mL): 0 Pathology: none sent Condition: stable Disposition: PACU
[2024-01-29 08:40] VITALS: BP 102/63; PULSE 56; RESP 18; TEMP 36.1; O2SAT 96
--- NOTE | 2024-01-29 08:47 | OP_ITS ---
DATE OF SERVICE: 01/29/2024 SURGEON: Cullen Frias MD INDICATIONS: The patient presents for evaluation of colorectal cancer screening. Full consent is obtained from her for this, including risks of bleeding and perforation. PREOPERATIVE DIAGNOSIS: Colorectal cancer screening. POSTOPERATIVE DIAGNOSIS: PROCEDURE PERFORMED: Colonoscopy to the cecum and terminal ileum. ESTIMATED BLOOD LOSS: COMPLICATIONS: ANESTHESIA: Monitored anesthesia care. ASSISTANTS: SPECIMENS: POSTOPERATIVE DIAGNOSES: Colorectal cancer screening, sigmoid diverticulosis and small internal hemorrhoids. DESCRIPTION OF PROCEDURE: The patient was placed in the left lateral decubitus position. The digital rectal exam revealed no abnormalities. The Olympus video pediatric colonoscope was entered into the rectum and advanced easily to the cecum. Once in the cecum, I did identify normal-appearing cecal pouch with appendiceal orifice and a normal-appearing ileocecal valve. The terminal ileum was cannulated and appeared normal. The scope was withdrawn back in the colon. The entire cecum and ileocecal valve appeared normal. The scope was then slowly withdrawn assessing all mucosal surfaces carefully. Preparation was excellent. I did not visualize any sign of polyps, colitis, nor angiodysplasia. There was a mild amount of sigmoid diverticulosis. In the rectum, scope was retroflexed visualizing internal hemorrhoids, but no other pathology. The rectal mucosa appeared normal. The scope was straightened and withdrawn from the patient. She tolerated the procedure well and was returned to recovery area in stable condition. IMPRESSION: 1. Sigmoid diverticulosis. 2. Internal hemorrhoids. PLAN: Given today's negative exam, a negative family history; I would recommend a followup colonoscopy in 10 years for further screening. She will otherwise see me on a p.r.n. basis. MD ROSALIE Ngo/YANCY / [phone]
== END 2024-01-29 09:25 | disposition home or self-care (01) ==
PROVIDERS: PCP Internal Medicine; Visit Provider Internal Medicine
PROC: 0DJD8ZZ Inspection of Lower Intestinal Tract, Via Natural or Artificial Opening Endoscopic (ICD-10-PCS; CPT 45378; principal; 2024-01-29 07:30)
DX: Z12.11 Encounter for screening for malignant neoplasm of colon (principal); K57.30 Diverticulosis of large intestine without perforation or abscess without bleeding; K64.8 Other hemorrhoids; Z83.719 Family history of colon polyps, unspecified; I10 Essential (primary) hypertension; E78.5 Hyperlipidemia, unspecified; K21.9 Gastro-esophageal reflux disease without esophagitis; Z79.82 Long term (current) use of aspirin; Z79.899 Other long term (current) drug therapy; Z79.02 Long term (current) use of antithrombotics/antiplatelets
CPT/HCPCS: 45378; J2003; J2704

== ENCOUNTER 2024-05-05 15:44 | Outpatient (REF) | payer OTHER, SELFPAY ==
--- OUTSIDE RECORDS SUMMARY | 2024-05-05 16:59 | XMS_ITS ---
Author Name [facility] Organization Unknown History of Medication Use Medication Directions Dispensed Refills Start Date End Date Stat us celeCOXIB (CeleBREX) 100 MG capsule Take 1 capsule (100 mg total) by mouth 2 (two) times a day. 08/01/2023 active sertraline (ZOLOFT) 100 MG tablet 08/01/2023 active carvedilol (COREG) 25 MG tablet 08/01/2023 active traZODone (DESYREL) 50 MG tablet 08/01/2023 active LORazepam (ATIVAN) 0.5 MG tablet 08/01/2023 active metoPROLOL SUCCINATE (TOPROL-XL) 100 MG 24 hr tablet 08/01/2023 active valACYclovir (VALTREX) 1000 MG tablet Take 1 tablet (1,000 mg total) by mouth 3 (three) times a day. 08/01/2023 active amLODIPine (NORVASC) 10 MG tablet 08/01/2023 active buPROPion (WELLBUTRIN XL) 150 MG 24 hr tablet 08/01/2023 active atorvastatin (LIPITOR) 80 MG tablet 08/01/2023 active Problems Problem Status Onset Date Problem Type Date of Resoluti on Source Acute pain of left knee active EncounterDiagnosisAct CCT
== END 2024-05-05 15:45 | disposition home or self-care (01) ==
LOC: HO.MAMMO 15:44
PROVIDERS: PCP Internal Medicine; Visit Provider Internal Medicine
DX: Z12.31 Encounter for screening mammogram for malignant neoplasm of breast (principal)
CPT/HCPCS: 77063; 77067

== ENCOUNTER → 2024-05-05 16:15 | Outpatient (BNV) | payer OTHER, SELFPAY | PROVIDERS: PCP Internal Medicine; Visit Provider Internal Medicine | DX: Z12.31 Encounter for screening mammogram for malignant neoplasm of breast (principal) | CPT/HCPCS: 77063; 77067 ==

== ENCOUNTER 2025-01-13 06:20 | Outpatient (REF) | payer OTHER, SELFPAY ==
--- OUTSIDE RECORDS SUMMARY | 2025-01-13 06:23 | XMS_ITS ---
Author Name [facility] Organization Unknown History of Medication Use Medication Directions Dispensed Refills Start Date End Date Stat us celeCOXIB (CeleBREX) 100 MG capsule Take 1 capsule (100 mg total) by mouth 2 (two) times a day. 07/30/2023 08/14/2023 active buPROPion (WELLBUTRIN XL) 150 MG 24 hr tablet 02/08/2021 active Allergies Allergen Reaction Severity Comment Documented Date Source Statu s TOPIRAMATE HIVES 03/20/2020 [facility] active OXYCODONE HIVES [facility] Problems Problem Status Onset Date Problem Type Date of Resoluti on Source Acute pain of left knee active EncounterDiagnosisAct [facility] Encounters Encounter Type Encounter Reason Primary Diagnosis Location Date Ambulatory Pain in left knee Pain in left knee Decohunt [facility] 07/30/2023 Ambulatory Contact with and (suspected) exposure to covid-19 [facility] 12/22/2021 Ambulatory Zoster without complications [facility] 03/10/2021 Care Team Organization Name Specialty Phone Email Start Date End Da te [facility] 12/22/2021 07/13/2024 [facility] 12/22/2021 12/22/2021
--- OUTSIDE RECORDS SUMMARY | 2025-01-13 06:23 | XMS_ITS | Clinical Summary ---
Author Organization [facility] ity Address [address] [place] [address] Care Team Providers Care Contract Processor Name Role Phone Frannie Braden MD Primary Care Provider [phone] Surgical History Surgery Date Site/Laterality Comments HYSTERECTOMY N/A PROCEDURE: HISTORICAL HYSTERECTOMY CHOLECYSTECTOMY N/A PROCEDURE: HISTORICAL CHOLECYSTECTOMY OTHER SURGICAL HISTORY 04/15/2022 PROCEDURE: [place] [facility] ANT INTERDY CERVCL BELW C2 EA ADDL NTRSPC; COMMENT: C5-6, C6-7 ACDF, Dr. Durbin Medical History Medical History Date Comments Essential (primary) hypertension DX:Essential (primary) hypertension GERD (gastroesophageal reflux disease) DX:GERD (gastroesophageal reflux disease) Nephrolithiasis DX:Nephrolithias is Depression DX:Depression Persistent headaches DX:Persiste nt headaches Pseudotumor cerebri DX:Pseudotum or cerebri Endometriosis DX:Endometriosis Mixed hyperlipidemia DX:Mixed hy perlipidemia Family History Medical History Relation Name Comments Hypertension Father Other cancer Father Glaucoma Mother Hypertension Mother Relation Name Status Comments Father Mother Social History Tobacco Use Types Packs/Day Years Used Date Smoking Tobacco: Some Days Cigarettes Smokeless Tobacco: Never Alcohol Use Standard Drinks/Week Comments Yes 0 (1 standard drink = 0.6 oz pur e alcohol) Comments Unknown Sex and Gender Information Value Date Recorded Sex Assigned at Not on file Legal Sex Female 6:18 PM EST Gender Identity Not on file Sexual Orientation Not on file Obstetrics History Last Filed Vital Signs Vital Sign Reading Time Taken Comments Blood Pressure 138/72 01/16/2023 9:38 AM EDT L A rm Pulse 79 01/16/2023 9:38 AM EDT Temperature - - Respiratory Rate - - Oxygen Saturation - - Inhaled Oxygen Concentration - - Weight 104 kg (230 lb) 08/27/2023 1:53 PM EDT Height 160 cm (5' 3 ) 08/27/2023 1:53 PM EDT Body Mass Index 40.74 08/27/2023 1:53 PM EDT Plan of Treatment Health Maintenance Due Date Last Done Comments Breast Cancer Screening 1969 DTaP,Tdap,and Td Vaccines (1 - Tdap) 1988 Hepatitis B Vaccines (1 of 3 - 19+ 3-dose series) 1988 Pneumococcal Vaccine: 50+ Years (1 of 2 - PCV) 1988 Cervical Cancer Screening: P ap Smear 1990 Zoster Vaccines (1 of 2) 2019 Colorectal Cancer Screening: Colonoscopy 03/29/2022 HIV Screening 03/29/2022 Hepatitis C Screening 03/29/2022 Social Influencers of Health Screening 03/29/2022 Depression Screening 04/27/2024 COVID-19 Vaccine (4 - 2024-2 6 season) 2024 03/04/2021, 09/08/2020, 08/11/2020 Influenza Vaccine (#1) 2024 HIB Vaccines Aged Out No longer eligi ble based on patient's age to complete this topic HPV Vaccines Aged Out No longer eligi ble based on patient's age to complete this topic Hepatitis A Vaccines Aged Out No long er eligible based on patient's age to complete this topic IPV Vaccines Aged Out No longer eligi ble based on patient's age to complete this topic MMR Vaccines Aged Out No longer eligi ble based on patient's age to complete this topic Meningococcal ACWY Vaccine Aged Out N o longer eligible based on patient's age to complete this topic Meningococcal B Vaccine Aged Out No l onger eligible based on patient's age to complete this topic RSV Immunization Patients Under 20 months Aged Out No longer eligible b ased on patient's age to complete this topic Varicella Vaccines Aged Out No longer eligible based on patient's age to complete this topic Care Teams Contract Processor Relationship Specialty Start Date End Date Frannie Braden MD [address] [facility] [address] [place], [place] PCP - General Internal Medicine 01/30/22
--- OUTSIDE RECORDS SUMMARY | 2025-01-13 06:23 | XMS_ITS | Clinical Summary ---
Author Organization [facility] Address [address] [place] [id number] Care Team Providers Care Mainstreaming Facilitator Name Role Phone Unknown Primary Care Provider [phone] Allergies Active Allergy Reactions Criticality Noted Date Comments Oxycodone Hives Medium 03/20/2020 Topiramate Hives Medium 03/20/2020 Medications amLODIPine (NORVASC) 10 MG tablet 1 Active atorvastatin (LIPITOR) 80 MG tablet 1 Active buPROPion (WELLBUTRIN XL) 150 MG 24 hr tablet 1 Active carvedilol (COREG) 25 MG tablet 1 Active LORazepam (ATIVAN) 0.5 MG tablet 1 Active metoPROLOL SUCCINATE (TOPROL-XL) 100 MG 24 hr tablet 1 Active sertraline (ZOLOFT) 100 MG tablet 1 Active traZODone (DESYREL) 50 MG tablet 1 Active valACYclovir (VALTREX) 1000 MG tabletIndications :Herpes zoster without complication Take 1 tablet (1,000 mg total) by mouth 3 (three) times a day. 21 tablet 1 Active celeCOXIB (CeleBREX) 100 MG capsuleIndication s:Acute pain of left knee Take 1 capsule (100 mg total) by mouth 2 (two) times a day. 28 capsule 4 Active Social History Tobacco Use Types Packs/Day Years Used Date Smoking Tobacco: Every Day Smokeless Tobacco: Current Alcohol Use Standard Drinks/Week Comments Not Currently 0 (1 standard drink = 0.6 oz pur e alcohol) Comments Unknown Sex and Gender Information Value Date Recorded Sex Assigned at Not on file Legal Sex Female 7:05 PM EST Gender Identity Not on file Sexual Orientation Not on file Last Filed Vital Signs Vital Sign Reading Time Taken Comments Blood Pressure 154/84 07/30/2023 11:21 AM EDT Pulse 87 07/30/2023 11:21 AM EDT Temperature 36.8 C (98.3 F) 07/30/2023 11:21 AM EDT Respiratory Rate - - Oxygen Saturation 98% 07/30/2023 11:21 AM EDT Inhaled Oxygen Concentration - - Weight 104 kg (230 lb) 07/30/2023 11:21 AM EDT Height 160 cm (5' 3 ) 07/30/2023 11:21 AM EDT Body Mass Index 40.74 07/30/2023 11:21 AM EDT Plan of Treatment Health Maintenance Due Date Last Done Comments Hepatitis C Virus Screening 1969 HIV Screening 1982 DTaP/Tdap/Td Vaccines (1 - Tdap) 1988 Hepatitis B Vaccines (1 of 3 - 19+ 3-dose series) 05/28 Pneumococcal Vaccines 50+ (1 of 2 - PCV) 1988 Pap Smear (Ages 21-65) 1990 Mammogram 2009 Colonoscopy 2014 Zoster (Shingles) Vaccine (1 of 2) 2019 Influenza Vaccine 11/25/2024 COVID-19 Vaccine (1 - 2023- season) 2024 Insurance [id number] Care Teams Mainstreaming Facilitator Relationship Specialty Start Date End Date Unknown Unknow Provider Address PCP - General 04/27/20
--- OUTSIDE RECORDS SUMMARY | 2025-01-13 06:23 | XMS_ITS | Clinical Summary ---
Author Organization [facility] Address [address] [place] [address] Care Team Providers Care Family Services Manager Name Role Phone Frannie Braden MD Primary Care Provider [phone] Social History Tobacco Use Types Packs/Day Years Used Date Smoking Tobacco: Never Assessed Sex and Gender Information Value Date Recorded Sex Assigned at Not on file Gender Identity Not on file Sexual Orientation Not on file Job Start Date Occupation Industry Not on file Not on file Not on file Plan of Treatment Health Maintenance Due Date Last Done Comments Hepatitis B Vaccines (1 of 3 - 3-dose series) 1969 Hepatitis C Screening 1969 COVID-19 Vaccine (#1) 1969 Depression Screening 1981 Preventative Health Evaluation 1987 DTap / Tdap / Td (1 - Tdap) 1988 Cervical Cancer Screening (P ap Smear) 1990 Colon Cancer Screening (Colonoscopy) 2014 Breast Cancer Screening (Mammogram) 2019 Shingrix-Zoster Vaccine (1 of 2) 2019 Influenza Vaccine (#1) 2024 Pneumococcal Vaccine Aged Out No long er eligible based on patient's age to complete this topic RSV Ped < 20 months Aged Out No longe r eligible based on patient's age to complete this topic Advance Directives For more information, please contact: [phone] Documents on File Type Date Recorded Patient [employer] Expl anation Advance Directive and Living Will 07/29/2017 3:40 PM Care Teams Family Services Manager Relationship Specialty Start Date End Date Frannie Braden MD [address] [place] [phone] PCP - General Internal Medicine 06/18/17
[2025-01-13 07:56] LABS: Hemoglobin A1C 153.8062 umol/L; Total Hemoglobin (HGBA1C) 3474.2675 umol/L
[2025-01-13 08:22] LABS: Alanine Aminotransferase 26 U/L (0-31); Albumin Level 4.2 g/dL (3.5-5.0); Alkaline Phosphatase 118 U/L (39-117); Anion Gap 10 (12-20); Aspartate Amino Transferase 26 U/L (5-31); Blood Urea Nitrogen 11 mg/dL (9-16); Calcium 8.6 mg/dL (8.4-10.2); Carbon Dioxide 25 mmol/L (22-29); Chloride 108 mmol/L (96-108); Estimated Glomerular Filt Rate > 60; Potassium 3.9 mmol/L (3.3-5.1); Sodium 139 mmol/L (135-145); Total Protein 7.3 g/dL (6.5-8.0)
== END 2025-01-13 06:21 | disposition home or self-care (01) ==
LOC: HO.LAB 06:20
PROVIDERS: PCP Internal Medicine; Visit Provider Internal Medicine
DX: Z00.00 Encounter for general adult medical examination without abnormal findings (principal); E78.00 Pure hypercholesterolemia, unspecified; G47.33 Obstructive sleep apnea (adult) (pediatric); B02.8 Zoster with other complications; B02.9 Zoster without complications; I10 Essential (primary) hypertension; R73.01 Impaired fasting glucose
CPT/HCPCS: 36415; 80053; 83036